=== PATIENT | male | born 1985 | race Caucasian/White ===

== ENCOUNTER 2016-11-24 19:38 | Emergency (ER) | payer BC ==
--- NOTE | 2016-11-24 21:16 | RAD ---
INDICATION: Left knee injury. TECHNIQUE: 4 views of the left knee were obtained. FINDINGS: The bones are normal alignment. There is a joint effusion present. No fracture is seen. Joint spaces appear maintained. IMPRESSION: JOINT EFFUSION, NO FRACTURE IS SEEN.
[2016-11-24 22:20] VITALS: BP 142/96
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
== END 2016-11-24 22:19 | disposition home or self-care (01) ==
LOC: ED 19:38
DX: S83.92XA Sprain of unspecified site of left knee, initial encounter (principal); X50.9XXA Other and unspecified overexertion or strenuous movements or postures, initial encounter; Y93.I9 Activity, other involving external motion; Y92.89 Other specified places as the place of occurrence of the external cause
CPT/HCPCS: 99282

== ENCOUNTER 2017-05-04 12:15 | Emergency (ER) | payer BC, OTHER ==
--- NOTE | 2017-05-04 13:44 | RAD ---
HISTORY: Left knee pain, injury COMPARISONS: December 01, 2016 VIEWS: 4, Frontal, lateral, axial, and oblique views of the left knee FINDINGS: BONE DENSITY: Normal. BONES: There is no displaced fracture. JOINTS: There is no arthropathy. There is no suprapatellar joint effusion or lipohemarthrosis. ALIGNMENT: There is no dislocation. SOFT TISSUES: Unremarkable. OTHER FINDINGS: None. IMPRESSION: NO ACUTE OSSEOUS INJURY. IF SYMPTOMS PERSIST, RECOMMEND REPEAT IMAGING.
--- NOTE | 2017-05-04 14:01 | ED ---
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 Patient denies swelling, bruising and any obvious deformity. Is able to bear weight and walk however increases pain. Pain is worse with straightening rather than bending. Patient denies any other injuries or complaints at this time. Took ibuprofen around 830am this morning. No other complaints. Denies numbness/tingling. No PMHx. - History of Current Complaint Chief Complaint: EDExtremityLower Stated Complaint: LT KNEE INJURY Time Seen by Provider: 05/04/17 12:26 Hx Obtained From: Patient Mechanism Of Injury: Direct Blow - inmate falling on, Twisted Onset of Pain: Immediate, Post Accident Onset/Duration: Worse Since Severity Initially: Mild Severity Currently: Moderate Pain Intensity: 7 Pain Scale Used: 0-10 Numeric Timing: Constant Location: Is Discrete @ - left knee Character Of Pain: Sharp, Aching, Stiffness Associated Signs And Symptoms: Positive: Knee Pain. Negative: Swelling, Redness , Bruising, Weakness Aggravating Factor(s): Standing, Ambulation, Weight Bearing Alleviating Factor(s): Rest Able to Bear Weight: Yes - Allergies/Home Medications Allergies/Adverse Reactions: Allergies Allergy/AdvReac Type Severity Reaction Status Date / Time No Known Allergies Allergy Verified 12/06/16 14:04 PMH/Surg Hx/FS Hx/Imm Hx Endocrine/Hematology History: Denies: Hx Diabetes, Hx Sickle Cell Disease Cardiovascular History: Denies: Hx Hypertension, Hx Pacemaker/ICD, Other Cardiovascular Problems/ Disorders Respiratory History: Denies: Other Respiratory Problems/Disorders GI History: Denies: Other GI Disorders History: Denies: Hx Renal Disease, Other Problems/Disorders Musculoskeletal History: Denies: Other Musculoskeletal History Sensory History: Denies: Hx Contacts or Glasses, Hx Hearing Aid Opthamlomology History: Denies: Hx Contacts or Glasses Neurological History: Denies: Other Neuro Impairments/Disorders Psychiatric History: Denies: Hx Panic Disorder - Surgical History Surgery Procedure, Year, and Place: RIGHT LEG ORIF - [place] [facility] [place] GASTRIC BYPASS 2013 Hx Anesthesia Reactions: No - Immunization History Immunizations Up to Date: Yes Infectious Disease History: No Infectious Disease History: Denies: Traveled Outside the [place] in Last 30 Days - Family History Known Family History: Positive: None - Social History Alcohol Use: None Substance Use Type: Reports: None Smoking Status (MU): Never Smoked Tobacco Review of Systems Constitutional: Negative Cardiovascular: Negative Respiratory: Negative Positive: Arthralgia, Myalgia, Decreased ROM - left knee Skin: Negative Neurological: Negative All Other Systems Reviewed And Are Negative: Yes Physical Exam Triage Information Reviewed: Yes Vital Signs On Initial Exam: Initial Vitals Temp Pulse Resp BP Pulse Ox 98.0 F 65 14 146/80 99 05/04/17 12:19 05/04/17 12:19 05/04/17 12:19 05/04/17 12:19 05/04/17 12:19 Vital Signs Reviewed: Yes Appearance: Positive: Well-Appearing, No Pain Distress, Well-Nourished Skin: Positive: Warm, Skin Color Reflects Adequate Perfusion, Dry. Negative: Cold, Cyanosis @, Pale, Erythema @ Head/Face: Positive: Normal Head/Face Inspection Eyes: Positive: Conjunctiva Clear ENT: Positive: Hearing grossly normal Neck: Positive: Supple, Nontender Respiratory/Lung Sounds: Positive: Clear to Auscultation, Breath Sounds Present. Negative: Rales, Rhonchi, Wheezes Cardiovascular: Positive: Normal, RRR, Pulses are Symmetrical in both Upper and Lower Extremities - 2+ pedal b/l. Negative: Murmur, Rub Musculoskeletal: Positive: Strength/ROM Intact - however painful, better with passive ROM, Pain @ - palpation of lateral left knee and behind left knee. with movement, Other - no crepitus, step off or obvious deformity no ecchymosis, erythema or edema. Negative: Limited @, Interruption @, Edema Left, Edema Right Neurological: Positive: Normal, Sensory/Motor Intact - sensation intact, Alert, Oriented to Person Place, Time, Reflexes Intact, NV Bundle Intact Distally, Normal Gait - with limping and favoring right side Psychiatric: Positive: Affect/Mood Appropriate - [place] Coma Scale Coma Scale Total: 15 Diagnostics - Vital Signs Vital Signs Temp Pulse Resp BP Pulse Ox 05/04/17 12:19 98.0 F 65 14 146/80 99 - Laboratory Lab Statement: Any lab studies that have been ordered have been reviewed, and results considered in the medical decision making process. - Radiology knee Xray Interpretation: No Acute Changes - NO ACUTE OSSEOUS INJURY. IF SYMPTOMS PERSIST, RECOMMEND REPEAT IMAGING. Radiology Interpretation Completed By: Radiologist Lower Extremity Course/Dx - Course Course Of Treatment: xray obtained and negative. normal PE findings. appears to have suffered a knee sprain. immobilizer, billy bandage, crutches, RICE and NSAIDs. Follow up with ortho if persist or worsen. follow up with PCP. refrain from use. aware of worsening signs and symptoms. - Diagnoses Differential Diagnosis/HQI/PQRI: Positive: Arthritis, Contusion, Dislocation, Fracture (Closed), Sprain, Strain Provider Diagnoses: Left knee sprain Discharge - Discharge Plan Condition: Improved Disposition: HOME Patient Education Materials: Knee Sprain (ED), Knee Immobilizer (ED) Forms: *Work Release Referrals: Pk Urena DO [Primary Care Provider] - Ross Boyd MD [Medical Doctor] - Additional Instructions: Take prescribed ibuprofen or aleve for pain and inflammation. Knee immobilizer and billy wrap. Crutches if needed for pain and with walking. Follow up with ortho and pcp if symptoms persist or worsen. Rest, elevate, ice. Refrain from use.
[2017-05-04] MEDS ORDERED: Naproxen TAB* 250 MG PO ONE (14:10)
[2017-05-04 14:31] VITALS: BP 128/81
== END 2017-05-04 14:31 | disposition home or self-care (01) ==
LOC: ED 12:15
DX: S83.92XA Sprain of unspecified site of left knee, initial encounter (principal); M25.562 Pain in left knee; Y04.0XXA Assault by unarmed brawl or fight, initial encounter; Y93.9 Activity, unspecified; Y92.9 Unspecified place or not applicable
CPT/HCPCS: 99282; A9270-GY

== ENCOUNTER 2017-08-15 07:22 | Day surgery (SDC) | payer OTHER ==
--- NOTE | 2017-08-09 20:27 | HP ---
PREOPERATIVE HISTORY AND PHYSICAL: DATE OF ADMISSION/SURGERY: 08/15/17 ATTENDING SURGEON: Dave Brock MD * (DICTATED BY DAYSI UPTON) PROCEDURE: Left knee arthroscopy, anterior cruciate ligament reconstruction. CHIEF COMPLAINT: Left knee pain. HISTORY OF PRESENT ILLNESS: Cullen is a 31-year-old male who presents to the clinic for left knee pain due to a work-related injury. He has failed conservative measures and has therefore agreed to undergo a left knee arthroscopy anterior cruciate ligament reconstruction with Dr. Brock on . PAST MEDICAL HISTORY: Denies current problems. PAST SURGICAL HISTORY: Right ankle and leg surgery in 2004 and gastric bypass in 2013. He denies prior complication with anesthesia. MEDICATIONS: 1. Alprazolam 0.5 mg as needed at night. 2. Ibuprofen 600 mg 3 times a day. ALLERGIES: No known drug allergies. FAMILY HISTORY: Positive for diabetes type 1 in his oldest daughter. SOCIAL HISTORY: He lives with his spouse. He works as a financial compliance officer. He denies tobacco use. He reports occasional alcohol consumption. REVIEW OF SYSTEMS: A 14-point review of systems was reviewed with the patient, positive for current complaint, otherwise negative. Denies fevers, chills. Denies chest pain, shortness of breath. Denies history of DVT or PE or history of bleeding disorder. PHYSICAL EXAMINATION GENERAL: This is a well-developed, well-nourished 31-year-old male in no acute distress. Alert and oriented x3. Appropriate mood and affect. VITAL SIGNS: Height 72, weight 260. Pulse 64, blood pressure 116/84, respiratory rate 18. BMI 35.3. HEENT: Normocephalic, atraumatic. PERRLA. Throat: Clear. NECK: Supple. PULMONARY: Lungs clear to auscultation bilaterally. No wheezing, rhonchi, or rales. CARDIO: Regular rate and rhythm. S1, S2. No murmurs, gallops, or rubs. No edema. ABDOMEN: Positive bowel sounds, soft, nontender. NEURO: Alert and oriented x3. Cranial nerves grossly intact. Sensation is intact to light touch. MUSCULOSKELETAL: Left lower extremity, the skin is intact. Trace effusion. Range of motion 0 to 135 degrees. Stable to varus and valgus stress. Tender about the medial joint line. Positive Junito. 2B Nga. Calves soft, nontender. +2 PT pulses. Sensation intact to light touch distally. DIAGNOSTIC STUDIES: MRI of the left knee revealed a complete anterior cruciate ligament tear. IMPRESSION: Left knee ACL tear. PLAN: The patient is scheduled to undergo a left knee arthroscopy anterior cruciate ligament reconstruction with Dr. Brock on 08/15/17. He will return to the office 8 days postop for followup and suture removal. The patient would prefer bone-patellar tendon-bone autograft as the graft for his ACL. Percocet was sent to the patient's pharmacy for postop pain management and Keflex was sent for antibiotic prophylaxis. DAYSI UPTON [id number]/[facility] #: [id number] MTDD
[~2017-08-15 07:22] MED LIST: Buffered Lidocaine 0.9% SYRIN* 5 ML/SYR SYRINGE INTRADERM ONE
[2017-08-15] MEDS ORDERED: ceFAZolin 2 GM PREMIX (*) 2 GM/50 ML BAG IVPB ONE (07:34)
[2017-08-15] MEDS ORDERED: Buffered Lidocaine 0.9% SYRIN* 5 ML/SYR SYRINGE ONE (07:34)
[2017-08-15] MEDS ORDERED: Propofol* 10 MG/ML 20 ML BTL IV PUSH ONE ×2 (08:03→10:10)
[2017-08-15] MEDS ORDERED: Midazolam* 1 MG/ML 2 ML VIAL (2 MG) ONE ×2 (08:03→09:24)
[2017-08-15] MEDS ORDERED: fentaNYL* 50 MCG/ML 2 ML VIAL (100 MCG VIAL) ONE ×4 (08:03→11:55)
[2017-08-15] MEDS ORDERED: Dexamethasone IV* 4 MG/ML 1 ML (4 MG) ONE (09:38)
[2017-08-15] MEDS ORDERED: Lidocaine 1% MPF wEPI 200,000* 30 ML SDV ONE (09:38)
[2017-08-15] MEDS ORDERED: Bupivacaine 0.25% SDV* 30 ML ONE (09:38)
[2017-08-15] MEDS ORDERED: HYDROcodone/ACETAMIN 5-325 MG* 1 TAB PO PRN (10:48)
[2017-08-15] MEDS ORDERED: HYDROmorphone INJ* 1 MG/ML CARPUJECT SYRINGE IV PRN (10:48)
[2017-08-15] MEDS ORDERED: Ondansetron INJ* 2 MG/ML VIAL IV PRN (10:48)
[2017-08-15] MEDS ORDERED: Naloxone* 0.4 MG/ML 1 ML VIAL IV PRN (10:48)
[2017-08-15] MEDS ORDERED: DiMENhydriNATE IV* 50 MG/ML VIAL IV PUSH PRN (10:48)
[2017-08-15] MEDS ORDERED: Ondansetron INJ* 2 MG/ML VIAL ONE (11:03)
[2017-08-15] MEDS ORDERED: Ketorolac INJ* 30 MG/ML 1 ML VIAL ONE (11:03)
[2017-08-15] MEDS: fentaNYL* 50 MCG/ML 2 ML VIAL (100 MCG VIAL) IV PRN ×3 (11:57→12:16)
[2017-08-15] MEDS ORDERED: oxyCODONE/Acetamin 5/325 MG* TAB ONE ×2 (12:03→12:09)
[2017-08-15] MEDS: oxyCODONE/Acetamin 5/325 MG* TAB PO PRN ×2 (12:05→12:10)
[2017-08-15 13:33] VITALS: BP 142/91
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
== END 2017-08-15 13:10 | disposition home or self-care (01) ==
LOC: OR 07:22
PROVIDERS: ATTEND Orthopaedic Surgery
DX: S83.512A Sprain of anterior cruciate ligament of left knee, initial encounter (principal); S83.282A Other tear of lateral meniscus, current injury, left knee, initial encounter; X58.XXXA Exposure to other specified factors, initial encounter; Y93.9 Activity, unspecified; Y92.149 Unspecified place in prison as the place of occurrence of the external cause; Y99.0 Civilian activity done for income or pay
CPT/HCPCS: A9270-GY; C1713; J0690; J1100; J1885; J2001; J2250; J2405; J2704; J3010

== ENCOUNTER 2018-12-10 09:48 | Emergency (ER) | payer OTHER ==
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
[2018-12-10 13:56] VITALS: BP 142/96
== END 2018-12-10 13:40 | disposition home or self-care (01) ==
LOC: ED 09:48
DX: J34.2 Deviated nasal septum (principal)
CPT/HCPCS: 70160; 99282